=== PATIENT | male | born 1960 | race Caucasian/White ===

== ENCOUNTER 2017-02-24 16:28 | Inpatient (IN) ==
[2017-02-24] MEDS ORDERED: ALBUTEROL 2.5 MG/3 ML NEB RESP TX STA (16:53)
[2017-02-24] MEDS ORDERED: SODIUM CHLORIDE 0.9% 500 ML IV STA (16:53)
[2017-02-24] MEDS ORDERED: methylPREDNISolone SOD SUC 125 MG/2 ML VIAL IV STA (16:53)
--- NOTE | 2017-02-24 16:57 | EKG Report ---
Stationary ECG Study [facility] ER Test Date: 02/24/2017 4:53:53 PM Pat Name: RAJENDRA CAMPBELL Department: Room: Gender: M Caf[employer] Associate: : 1960 Requested by: Danial Austin Order Number: [id number] Reading MD: MICHAEL RAMIREZ Intervals [place] Rate: 98 P: 94 LA: 127 QRS: -28 QRSD: 94 T: 70 QT: 328 QTc: 383 Interpretive Statements SINUS RHYTHM BORDERLINE LEFT AXIS DEVIATION Electronically Signed On 02-24-17 20:21:20 CDT by MICHAEL RAMIREZ [email or web address]
--- NOTE | 2017-02-24 16:59 | Emergency Department Note ---
Maycol Butler Brooke, am scribing for, and in the presence of, Danial Sanchez MD 16:56 . Laura Butler James D, MD, personally performed the services described in this documentation, ascribed by Sakshi Severino in my presence, and it is both accurate and complete [id number] . Arrival - Arrival Chief Complaint: Upper Respiratory Stated Complaint: copd ED Nursing Triage Note: Cough and congestion with wheezing onset x 2 weeks - pt has a HX of COPD Mode of Arrival: Wheelchair Limitations: No Limitations Source: Patient, RN Notes Reviewed Time Seen by Provider: 02/24/17 16:49 - History of Present Illness HPI Narrative: Patient is a 56 year old male, with history of COPD, who presents to the ED with c/o wheezing that has been ongoing for a couple of weeks. Patient says he was in the ED, two weeks ago, with same complaint and states "they wanted to admit me but I didn't have anyone to take care of my mother, so I couldn't." Patient says he has been coughing a lot and has had nasal and sinus drainage. Patient denies having any sore throat. He has been using Duonebs every four hours and albuterol every six hours. He says he had a syncopal episode, four days ago, and fell onto his left shoulder. Patient says his left shoulder is very painful to move and touch. Patient denies having any back pain. Patient also has PMHx of pneumonia and hepatitis C and B. Patient does not have a Primary Care Provider. He quit smoking about five years ago and says he used to smoke "a couple of packs" of cigarettes a day. Onset (ago): week(s) (2) Allergies/Adverse Reactions: Allergies Allergy/AdvReac Type Severity Reaction Status Date / Time No Known Allergies Allergy Verified 05/04/16 13:33 Home Medications: Home Medications Medication Instructions Recorded Confirmed Type Budesonide/Formoterol 160-4.5 2 puff INH BID 05/04/16 02/24/17 History [Symbicort 160-4.5] Albuterol/Ipratropium Neb [Duoneb] 3 ml RESP TX RT Q4H 11/16/16 02/24/17 History Albuterol Neb [Proventil Neb] 2.5 mg RESP TX Q6HR #120 neb 01/02/17 02/24/17 Rx Review of System - Review of System 12 point system: reviewed and no additional remarkable complaints except as stated - Review of System Constitutional: Absent: fever Head/Ears/Nose/Throat: Present: other (nasal and sinus drainage). Absent: sore throat Respiratory: Present: cough, wheezing. Absent: respiratory distress Musculoskeletal: Present: other (left shoulder pain). Absent: back pain Skin: Absent: rash Medical,Surgical,& Family Hx - Medical History Respiratory: History of: COPD, Pneumonia Gastrointestinal: History of: Hepatitis (Hep B & C) Other: History of: Miscellaneous Medical Problems (Hep C) - Surgical History Reproductive Surgeries: Surgical HX of;: Genitourinary Surgery (Procedure to correct Testicular Torsion) - Family History Family History: Reports;: Family Diabetes, Family Hypertension - Social History Smoking Status: Former smoker Frequency of Alcohol Use: None Type of Drug Use: None Exam Vital Signs: Vital Signs Temperature 98.2 F 02/24/17 16:38 Pulse Rate 118 H 02/24/17 17:00 Respiratory Rate 18 02/24/17 17:00 Blood Pressure 140/113 02/24/17 16:38 O2 Sat by Pulse Oximetry 95 02/24/17 17:00 GENERAL: This is a well-nourished well-developed white male in no apparent distress. VITAL SIGNS: Reviewed HEENT: Head is atraumatic and normocephalic. Pupils are equal round react to light. Extraocular movements are intact. Oropharynx is benign with moist mucous membranes. NECK: Neck is soft and supple without tenderness. There are no masses. There is no lymphadenopathy. LUNGS: Expiratory wheezes in all lung nathan with prolongation of expiratory phase. Chest rises symmetrically. There is no chest wall tenderness. CV: Heart is regular rate and rhythm without murmurs rubs or gallops. ABDOMEN: Abdomen is soft, nontender to palpation. There are no abdominal abnormal masses palpated. There is no organomegaly. Bowel sounds are present and active. Back: Patient has tenderness to palpation overlying the left scapula. SKIN: Skin is warm and dry. No rash. EXTREMITIES: Patient has full range of motion without tenderness. There is no pedal edema. NEUROLOGIC: Awake alert and oriented 4. Cranial nerves II through XII are grossly intact. Motor is 5 over 5 in all extremities bilaterally. Course - Reevaluation(s) Reevaluation #1: Patient continues to have wheezing after hour-long nebulization. Time: 18:00 - Consultations Consultation #1: Discussed with hospitalist. Patient will be admitted to their service. Time: 18:00 Results - Labs CBC & BMP: 02/24/17 17:05 02/24/17 17:05 Lab Results: I have reviewed the patients labs Labs: Laboratory Tests 02/24/17 17:05 Troponin I < 0.015 - EKG EKG results: interpreted by ERMD - Impressions EKG: Normal sinus rhythm with a rate of 98, left axis deviation, low voltage QRS , nonspecific ST-T wave. - Diagnostic Findings Procedure: Chest x-ray: image reviewed by me (No infiltrates, no pleural effusions.), CT: image reviewed by me (CT head: No acute intracranial lesions or hemorrhage.), X-ray: image reviewed by me (Scapula x-ray: No evidence of fracture of the left scapula. Left shoulder x-ray: No evidence of fracture.) Disposition Clinical Impression: COPD with acute exacerbation, Post-tussive syncope, Contusion of left shoulder Case discussed with: patient Disposition: Still a Patient Condition: Stable
[2017-02-24] MEDS ORDERED: methylPREDNISolone SOD SUC 125 MG/2 ML VIAL ONE (17:17)
--- NOTE | 2017-02-24 17:20 | XRay Report ---
XR chest 1V portable Indication: Shortness of breath. Comparison: Chest x-ray 01/02/2017. Technique: Portable AP chest was performed. Findings: Heart size is normal. Pulmonary vasculature appears within normal limits. No significant abnormality of the mediastinal contours demonstrated. Lungs are clear. Bones and soft tissues demonstrate no significant abnormalities. Impression: 1. No evidence of acute pathology. 02/24/2017 5:17 PM PROCEDURE INTERPRETED AT [facility] DEPARTMENT OF RADIOLOGY Final Report Signed by: Dr. Milind Kang
[2017-02-24 17:40] LABS: Basophils # 0.1 10*3/uL (0.0-0.2); Basophils % 0.9 % (0.0-0.8); Eosinophils # 3.6 10*3/uL (0.0-0.87); Eosinophils % 27.1 % (0.00-10.9); Hemoglobin 16.8 GM/DL (14.0-18.0); Immature Granulocytes % 0.3 %; Immature Granulocytes Absolute 0.04 #; Lymphocytes # 1.6 10*3/uL (1.4-4.0); Lymphocytes % 12.3 % (21.2-54.2); Mean Corpuscular HGB Conc 36.9 GM/DL (32-36); Mean Corpuscular Hemoglobin 35 PG (27-34); Mean Corpuscular Volume 95.6 FL (87-102); Mean Platelet Volume 10.1 FL (9.6-12.0); Monocytes # 0.9 10*3/uL (0.11-0.8); Monocytes % 7.2 % (1.7-12.7); Neutrophils # 6.9 10*3/uL (1.4-7.4); Neutrophils % 52.2 % (38.7-73.9); Platelet Count 204 T/CUMM (130-400); Red Blood Count 4.76 MC/CUMM (3.8-5.5); Red Cell Distribution Width 12.7 % (9.3-17.3); White Blood Count 13.1 T/CUMM (4-12)
[2017-02-24 17:41] LABS: Hematocrit 45.5 VOL% (42.0-52.0)
--- NOTE | 2017-02-24 17:41 | CT Report ---
CT head/brain wo con Indication: Syncope Comparison: None. Technique: CT of the brain was performed without administration of intravenous contrast. The CT examination was performed using one or more of the following dose reduction techniques: Automatic exposure control, adjustment of the mA and kV according to patient size, use of acute or iterative reconstruction techniques. Findings: There is no evidence of acute intracranial hemorrhage, mass, or infarction. Ventricles appear within normal limits. The basal cisterns are patent. No significant abnormality is demonstrated to involve the posterior fossa or cerebellum. Orbits and globes demonstrate no evidence of significant pathology. Paranasal sinuses are completely opacified with fluid. Frontal sinuses are hypoaerated. No significant abnormality is demonstrated to involve the mastoid air cells. The calvarium and overlying soft tissues demonstrate no evidence of acute pathology. Impression: 1. No CT evidence of acute intracranial pathology. 2. Pansinusitis. 02/24/2017 5:37 PM PROCEDURE INTERPRETED AT [facility] DEPARTMENT OF RADIOLOGY Final Report Signed by: Dr. Milind Kang
[2017-02-24 17:43] LABS: Albumin 4.1 G/DL (3.4-5.0); Bilirubin,Total 0.8 MG/DL (0.2-1.0); Calcium 9.5 MG/DL (8.5-10.1); Osmolality,Calculated 273.7 MOS/KG (273-304); Potassium 4.4 MMOL/L (3.5-5.1)
[2017-02-24] MEDS ORDERED: ACETAMINOPHEN 325 MG TABLET PO PRN (18:08)
[2017-02-24] MEDS ORDERED: ONDANSETRON 4 MG/2 ML VIAL IV PRN (18:08)
[2017-02-24 18:12] LABS: Eosinophils 22 % (0-10); Lymphocytes 14 % (20-55); Platelet Estimate Adequate; Segmented Neutrophils 60 % (50-85); Total Cells Counted 100
[2017-02-24 18:13] LABS: Hypochromasia Slight
--- NOTE | 2017-02-24 18:20 | Hospitalist History & Physical ---
Assessment and Plan (1) COPD with acute exacerbation Status: Acute Assessment and plan: We will start inhaled bronchodilators, empiric antibiotic coverage, and intravenous corticosteroids. We will recheck chest x-ray in a.m. Current Visit: Yes (2) Contusion of left shoulder Status: Acute Assessment and plan: X-ray of left shoulder and left arm essentially negative for any acute fracture or abnormality. We will manage pain and consult physical therapy for evaluation. We will continue supportive care. Current Visit: Yes (3) Post-tussive syncope Status: Acute Assessment and plan: The patient reports that he had a syncopal episode and subsequently caused injury to his left arm. CT of the head was essentially negative for any acute intracranial processes. This is likely attributed to his chronic obstructive pulmonary disease. Current Visit: Yes History of Present Illness Chief complaint: Shortness of breath, cough, congestion, and wheezing History of present illness: This is a chronically ill 56-year-old male that presented to the ED at [facility] this afternoon for the evaluation of cough, congestion, wheezing, shortness of breath. The patient has a medical history significant for hepatitis C, hepatitis B, chronic obstructive pulmonary disease, remote nicotine abuse, pneumonia. The patient reported a surgical history significant for testicular torsion repair. The patient reports the onset of symptoms 2 weeks prior to presentation. He reports that he was seen in the ED during that time for the same complaint however refused admission due to family obligations. The patient reports an excessive cough with both nasal and sinus drainage. He reports that he has been taking his inhaled bronchodilators every 6 hours with minimal relief. In addition, the patient reported that he had a syncope episode 4 days ago injuring his left shoulder. He reports that his left shoulder is painful to touch and he has been unable to lie on that side. His symptoms became severe this afternoon prompting him to present to the ED for further evaluation. The patient was assessed at the time of ED presentation. At the time of presentation, the patient was experiencing respiratory distress. Immediate bronchodilator treatments were initiated with minimal relief. Labs were obtained which were significant for white blood cell count at 13.1, AST 53, ALT 76, alkaline phosphatase 124, troponin less than 0.05. Chest x-ray was negative for any acute cardiopulmonary processes. CT head was essentially negative for any evidence of acute intracranial pathology however pansinusitis was noted. X-ray of the left shoulder and left scapula was essentially; no evidence of fracture or acute deformity noted. After brief discussion with both and Dr. Richards, the patient will be admitted to the hospitalist service for continuation of care. Home medications have been reviewed and reconciled. CODE STATUS discussed; patient is FULL CODE. Home Medications Medication Instructions Recorded Confirmed Type Budesonide/Formoterol 160-4.5 2 puff INH BID 05/04/16 02/24/17 History [Symbicort 160-4.5] Albuterol/Ipratropium Neb [Duoneb] 3 ml RESP TX RT Q4H 11/16/16 02/24/17 History Albuterol Neb [Proventil Neb] 2.5 mg RESP TX Q6HR #120 neb 01/02/17 02/24/17 Rx Allergies Allergy/AdvReac Type Severity Reaction Status Date / Time No Known Allergies Allergy Verified 05/04/16 13:33 Medical,Surgical,& Family Hx - Medical History Respiratory: History of: COPD, Pneumonia Gastrointestinal: History of: Hepatitis (Hep B & C) Other: History of: Miscellaneous Medical Problems (Hep C) - Surgical History Reproductive Surgeries: Surgical HX of;: Genitourinary Surgery (Procedure to correct Testicular Torsion) - Family History Family History: Reports;: Family Diabetes, Family Hypertension - Social History Smoking Status: Former smoker Frequency of Alcohol Use: None Type of Drug Use: None Exam - Constitutional Vitals: Period Temp Pulse Resp BP Sys/Bartholomew Pulse Ox Last 24 Hr 98.2 F-98.2 F 111-118 18-20 140-140/113-113 94-95 General appearance: normal weight, mild distress - Head Head exam: Present: normal inspection, normocephalic, atraumatic - Eye Eye exam: Present: EOMI. Absent: conjunctival injection Pupils: Present: RONY, normal accommodation - ENT ENT exam: Present: normal exam, normal external ear exam, normal oropharynx - Neck Neck exam: Present: normal inspection. Absent: lymphadenopathy, meningismus, tenderness, thyromegaly - Respiratory Respiratory exam: Present: accessory muscle use, prolonged expiratory phase, wheezes - Cardiovascular Cardiovascular exam: Present: regular rate and rhythm. Absent: carotid bruit, diastolic murmur, gallop, JVD, rubs, systolic murmur - GI/Abdominal GI/Abdominal exam: Present: normal bowel sounds, soft - Extremities Exam Extremities exam: Present: normal inspection, full ROM (Limited range of motion to the left shoulder secondary to injury prior to presentation) - Expanded Left Upper Extremity Shoulder exam: Present: normal inspection, pain, tenderness over AC joint, tenderness Upper Arm exam: Present: normal inspection, tenderness, pain Elbow exam: Present: normal inspection Forearm wrist exam: Present: normal inspection Hand wrist exam: Present: normal inspection Neuro motor exam: Present: fingers 2-5 abduction intact Neurosensory exam: Present: 2-point discrimination Vascular: Present: normal capillary refill - Neurological Exam Neurological exam: Present: alert, oriented X3, CN II-XII intact - Psychiatric Psychiatric exam: Present: normal affect, normal mood - Skin Skin exam: Present: normal color, warm, dry Results - Labs CBC & BMP: 02/24/17 17:05 02/24/17 17:05 Lab Results: I have reviewed the past 24 hour labs
--- NOTE | 2017-02-24 18:53 | XRay Report ---
XR scapula LT Indication: Syncope. Left scapular pain status post fall. Comparison: None. Technique: AP and lateral images of the left scapula were obtained. Findings: No acute fracture of the left scapula is present. The glenohumeral joint is grossly intact. Visualized portions of the left rib cage suggest no acute findings, remote rib fractures involving the lateral aspect of the left fourth rib and posterior lateral fifth rib are suggested. Additional rib deformities involving the lateral left seventh and eighth ribs are present. Impression: 1. No acute scapular injury. 2. Rib fractures involving the left rib cage appear to represent remote injuries. 02/24/2017 6:49 PM PROCEDURE INTERPRETED AT [facility] [place] DEPARTMENT OF RADIOLOGY Final Report Signed by: Dr. Milind Kang
--- NOTE | 2017-02-24 18:54 | XRay Report ---
XR shoulder 2V LT Indication: Left shoulder pain status post fall. Syncope. Comparison: None. Technique: Internal/external rotation AP views of the left shoulder were obtained. Findings: There is no evidence of fracture, dislocation, or significant soft tissue abnormality involving the left shoulder. Imaged portion of the left chest is unremarkable. Subtle elevation of the distal clavicle at the AC joint is present. Additionally, the AC joint measures up to approximately 4.5 mm, upper limits of normal. Impression: 1. AC joint separation is not excluded. 02/24/2017 6:50 PM PROCEDURE INTERPRETED AT [facility] DEPARTMENT OF RADIOLOGY Final Report Signed by: Dr. Milind Kang
[2017-02-24] MEDS: ALBUTEROL/IPRATROPIUM 3 ML NEB RESP TX SCH (19:00)
[2017-02-24] MEDS: ALBUTEROL 2.5 MG/3 ML NEB RESP TX PRN (21:01)
[2017-02-24] MEDS: SODIUM CHLORIDE 0.9% 1,000 ML IV SCH (21:41)
[2017-02-24] MEDS: LEVOFLOXACIN INJ 750 MG in PREMIX 1 EACH IV SCH (21:41)
[2017-02-24] MEDS: ENOXAPARIN 40 MG/0.4 ML SYRINGE SUBCUT SCH (21:42)
[2017-02-24] MEDS: BUDESONIDE/FORMOTEROL 160-4.5 INHALER 6 GM INH SCH (21:43)
[2017-02-24] MEDS: methylPREDNISolone SOD SUC 40 MG/1 ML VIAL IV SCH (21:43)
[2017-02-24] MEDS: DOCUSATE SODIUM 100 MG CAPSULE PO SCH (21:44)
[2017-02-24] MEDS: ZALEPLON 5 MG CAPSULE PO PRN (21:45)
[2017-02-25] MEDS: ALBUTEROL/IPRATROPIUM 3 ML NEB RESP TX SCH ×4 (01:40→19:52)
[2017-02-25] MEDS: methylPREDNISolone SOD SUC 40 MG/1 ML VIAL IV SCH ×4 (04:26→21:35)
[2017-02-25 05:20] LABS: Basophils % 0.2 % (0.0-0.8); Eosinophils % 0.4 % (0.00-10.9); Hematocrit 38.6 VOL% (42.0-52.0); Hemoglobin 13.8 GM/DL (14.0-18.0); Immature Granulocytes % 0.7 %; Immature Granulocytes Absolute 0.04 #; Lymphocytes # 0.5 10*3/uL (1.4-4.0); Lymphocytes % 9.5 % (21.2-54.2); Mean Corpuscular HGB Conc 35.8 GM/DL (32-36); Mean Corpuscular Hemoglobin 35 PG (27-34); Mean Corpuscular Volume 96.7 FL (87-102); Mean Platelet Volume 10.3 FL (9.6-12.0); Monocytes # 0.1 10*3/uL (0.11-0.8); Monocytes % 1.5 % (1.7-12.7); Neutrophils # 4.8 10*3/uL (1.4-7.4); Neutrophils % 87.7 % (38.7-73.9); Platelet Count 187 T/CUMM (130-400); Red Blood Count 3.99 MC/CUMM (3.8-5.5); Red Cell Distribution Width 12.5 % (9.3-17.3); White Blood Count 5.5 T/CUMM (4-12)
[2017-02-25 05:57] LABS: Albumin 3.4 G/DL (3.4-5.0); Bilirubin,Total 1.1 MG/DL (0.2-1.0); Calcium 8.9 MG/DL (8.5-10.1); Potassium 4.4 MMOL/L (3.5-5.1); Total Protein 6.9 G/DL (6.4-8.3)
--- NOTE | 2017-02-25 08:24 | XRay Report ---
XR chest 2V Indication: Shortness of breath Comparison: 24 February 2017 Findings: The heart and mediastinum are normal in size and configuration. The pulmonary vascularity is normal in caliber. Lung volumes are increased with prominent bronchial markings. No lung infiltrates, effusions, pneumothorax or other abnormality is demonstrated. Impression: Chronic lung changes. No acute process or significant change. PROCEDURE INTERPRETED AT [facility] DEPARTMENT OF RADIOLOGY Final Report Signed by: Dr. Jules Melgar
[2017-02-25] MEDS: DOCUSATE SODIUM 100 MG CAPSULE PO SCH ×2 (08:36→21:35)
[2017-02-25] MEDS: PANTOPRAZOLE 40 MG TABLET PO SCH (08:36)
[2017-02-25] MEDS: SODIUM CHLORIDE 0.9% 1,000 ML IV SCH ×3 (08:37→23:07)
[2017-02-25] MEDS: BUDESONIDE/FORMOTEROL 160-4.5 INHALER 6 GM INH SCH ×2 (08:37→21:34)
--- NOTE | 2017-02-25 13:13 | Hospitalist Progress Note ---
Assessment and Plan - Time spent with patient Time spent with patient: Greater than 30 minutes (Pt is new to me and chart reviewed by me today.) (1) COPD with acute exacerbation Status: Acute Assessment and plan: Continue current IV steroid dosage. Continue NEB, oxygen and IV levaquin. Reeval in am. BMP in am. ABG in am. Current Visit: Yes (2) Contusion of left shoulder Status: Acute Current Visit: Yes (3) Post-tussive syncope Status: Acute Current Visit: Yes Hospitalist: Subjective Interval history: No overnight acute event. Still feeling SOB. Adm yesterday due to COPD exac. On iv steroid and levaquin. On resp care and NEB treatment. Exam - Constitutional Vitals: Period Temp Pulse Resp BP Sys/Bartholomew Pulse Ox Last 24 Hr 97.6 F-98.3 F 90-126 17-24 103-149/65-113 90-97 Exam: General: Lying in bed. AAOx3. On oxygen HEENT: NC AT EOMI, normal lips and gum. Lungs: B/l decreased breath sound. Heart: +S1/S2, RRR, no gallops. Abd: +BS, NT ND. Neuro: AAOx3 - Expanded Left Upper Extremity Neurosensory exam: Present: 2-point discrimination Results - Labs CBC & BMP: 02/25/17 05:02 02/25/17 05:02 Specialty Discharge - Follow Up or Referrals
[2017-02-25] MEDS: HYDROcodone/HOMATROPINE 5 ML UDCUP PO PRN ×2 (15:17→21:35)
[2017-02-25] MEDS: LEVOFLOXACIN INJ 750 MG in PREMIX 1 EACH IV SCH (17:32)
[2017-02-25] MEDS: ENOXAPARIN 40 MG/0.4 ML SYRINGE SUBCUT SCH (21:44)
[2017-02-26] MEDS: ALBUTEROL/IPRATROPIUM 3 ML NEB RESP TX SCH ×4 (00:54→19:53)
[2017-02-26 02:53] LABS: Calcium 8.5 MG/DL (8.5-10.1); Magnesium 2.4 MG/DL (1.8-2.4); Osmolality,Calculated 276.8 MOS/KG (273-304); Potassium 3.9 MMOL/L (3.5-5.1)
[2017-02-26 03:51] LABS: ABG Base Excess -0.9 MMOL/L (-2.5-2.5); ABG HCO3 23.2 MMOL/L (20-26); ABG Oxygen Saturation 94.2 % (95-100); ABG PCO2 36.8 MM HG (35-48); ABG PH 7.417 (7.35-7.45); ABG TCO2 24.3 MMOL/L (23-27); Allen Test Positive; Pt O2 Delivery Device Room Air
[2017-02-26] MEDS: SODIUM CHLORIDE 0.9% 1,000 ML IV SCH ×2 (05:17→15:44)
[2017-02-26] MEDS: methylPREDNISolone SOD SUC 40 MG/1 ML VIAL IV SCH ×4 (05:27→21:00)
[2017-02-26] MEDS: HYDROcodone/HOMATROPINE 5 ML UDCUP PO PRN ×3 (07:32→20:58)
[2017-02-26] MEDS: guaiFENesin/DM ER 600-30 MG TABLET PO PRN (09:37)
[2017-02-26] MEDS: PANTOPRAZOLE 40 MG TABLET PO SCH (09:37)
[2017-02-26] MEDS: DOCUSATE SODIUM 100 MG CAPSULE PO SCH ×2 (09:37→20:57)
[2017-02-26] MEDS: BUDESONIDE/FORMOTEROL 160-4.5 INHALER 6 GM INH SCH ×2 (09:38→20:58)
--- NOTE | 2017-02-26 09:47 | XRay Report ---
XR chest 2V Date: 02/26/2017 4:00 AM History: COPD Comparison: 02/25/2017 Technique: PA and lateral chest Findings: The heart is small and compressed by the over expanded lungs. Chronic scarring in the lungs with old healed rib fractures. Stable mediastinum. Degenerative changes are noted. Impression: COPD/bullous emphysema with chronic scarring. PROCEDURE INTERPRETED AT [facility] [place] DEPARTMENT OF RADIOLOGY Final Report Signed by: Dr. Selam Chan
--- NOTE | 2017-02-26 15:14 | Hospitalist Progress Note ---
Assessment and Plan (1) COPD with acute exacerbation Status: Acute Assessment and plan: Continue bronchodilators, ipratropium bromide. Increase Solu-Medrol to 60 mg IV every 8 hours. Schedule albuterol also should be able to be given. For the chest x-ray in the morning. Current Visit: Yes (2) Post-tussive syncope Status: Acute Assessment and plan: Continue antitussive medications as ordered Current Visit: Yes Hospitalist: Subjective Interval history: Patient has been seen interviewed and examined and chart has been reviewed. Admitted to the hospital with acute exacerbation of COPD and post-tussive syncope. He remains quite bronchospastic at this time. General however he looks to be prudent to start talking to him and he goes into a coughing spell. No fevers and not certain any prior history of old infectious exposures including pertussis. There is no post-tussive vomiting. Exam - Constitutional Vitals: Period Temp Pulse Resp BP Sys/Bartholomew Pulse Ox Last 24 Hr 97 F-98.0 F 80-108 16-24 126-141/70-84 89-100 General appearance: no acute distress - Head Head exam: Present: normocephalic, atraumatic - Eye Eye exam: Present: EOMI Pupils: Present: RONY - Respiratory Respiratory exam: Present: wheezes, other (Diffuse wheezing paroxysmal coughing with increased upper airway sounds) - Cardiovascular Cardiovascular exam: Present: regular rate and rhythm - Extremities Exam Extremities exam: Present: full ROM - Expanded Left Upper Extremity General: Present: normal inspection Neurosensory exam: Present: 2-point discrimination - Neurological Exam Neurological exam: Present: alert, oriented X3, CN II-XII intact - Psychiatric Psychiatric exam: Present: normal affect, normal mood - Skin Skin exam: Present: normal color, warm, dry Results - Labs CBC & BMP: 02/25/17 05:02 02/26/17 02:04 Lab Results: I have reviewed the past 24 hour labs (Noted mild anemia) Specialty Discharge - Follow Up or Referrals
[2017-02-26] MEDS: ALBUTEROL 2.5 MG/3 ML NEB RESP TX PRN (16:22)
[2017-02-26] MEDS: LEVOFLOXACIN INJ 750 MG in PREMIX 1 EACH IV SCH (18:18)
[2017-02-26] MEDS: ENOXAPARIN 40 MG/0.4 ML SYRINGE SUBCUT SCH (20:58)
[2017-02-26] MEDS: ZALEPLON 5 MG CAPSULE PO PRN (20:59)
[2017-02-27] MEDS: ALBUTEROL/IPRATROPIUM 3 ML NEB RESP TX SCH ×2 (00:20→07:36)
[2017-02-27] MEDS: SODIUM CHLORIDE 0.9% 1,000 ML IV SCH (01:30)
[2017-02-27] MEDS: HYDROcodone/HOMATROPINE 5 ML UDCUP PO PRN ×2 (04:34→10:37)
[2017-02-27] MEDS: guaiFENesin/DM ER 600-30 MG TABLET PO PRN (04:34)
[2017-02-27] MEDS: methylPREDNISolone SOD SUC 40 MG/1 ML VIAL IV SCH ×2 (04:35→09:32)
--- NOTE | 2017-02-27 09:19 | XRay Report ---
XR chest 2V Date: 02/27/2017 4:00 AM History: Pneumonia Comparison: 02/26/2017 Technique: PA and lateral chest Findings: The heart is small and compressed by the over expanded lungs. Chronic scarring in the lungs with old rib fractures. Stable mediastinum with degenerative changes. Impression: COPD/bullous emphysema with chronic scarring. PROCEDURE INTERPRETED AT [facility] DEPARTMENT OF RADIOLOGY Final Report Signed by: Dr. Selam Chan
[2017-02-27] MEDS: PANTOPRAZOLE 40 MG TABLET PO SCH (09:31)
[2017-02-27] MEDS: DOCUSATE SODIUM 100 MG CAPSULE PO SCH (09:31)
[2017-02-27] MEDS: BUDESONIDE/FORMOTEROL 160-4.5 INHALER 6 GM INH SCH (09:32)
--- NOTE | 2017-02-27 11:07 | CT Report ---
Referring physician: Ravi Cisneros MD EXAM: CT chest without contrast DATE: 02/27/2017 COMPARISON: 08/21/2014 REASON: Recent fall with continued pain between shoulders and left anterior chest with cough TECHNIQUE: Axial images of the chest were obtained without the use of IV contrast. Coronal and sagittal reformatted images were also provided. Total DLP is 425 mGy*cm. FINDINGS: The heart is normal in size with cardiac fat pads and coronary artery calcifications. Additional arterial calcifications noted with limited evaluation of the vasculature and nodes without contrast. No chest lymphadenopathy is identified. Minimal paraseptal emphysema with residual overexpansion of the lungs. Chronic scarring/atelectasis at the left lung base in the lingula. No pneumothorax or pleural effusion. Acute nondisplaced fractures of the left 2-5 ribs. Additional healing fractures of the left 2 and 3 ribs. Old healed eighth rib fractures noted bilaterally. IMPRESSION: Minimal paraseptal emphysema with no pneumothorax or pleural effusion. Cardiac fat pads with chronic scarring/atelectasis in the inferior lingula. Acute nondisplaced left 2-5 rib fractures with healing 2 and 3 left rib fractures and chronic bilateral eighth rib fractures. The CT exam was performed using one or more of the following dose reduction techniques: Automated exposure control and adjustment of the mA and/or kV according to patient size. PROCEDURE INTERPRETED AT [facility] [place] DEPARTMENT OF RADIOLOGY Final Report Signed by: Dr. Selam Chan
[2017-02-27 12:36] VITALS: BP 131/88
--- NOTE | 2017-02-27 12:40 | Discharge Summary ---
Hospital Course - Hospital Course Hospital Course: Mr Ham 56 year old male, with PMHx COPD, pneumonia, hepatitis C and B presented to the ED on 02/24/17 with c/o wheezing ongoing for a couple of weeks. Also, He had a syncopal episode, approximately four days ago, and fell onto his left shoulder and reported left shoulder very painful to move and touch. Quit smoking about five years ago (was:2pack per day). WHILE IN ED: Vital Signs stable: Temperature 98.2; HR 111; RR 20; BP 140/100, SAT 94% on RA, 96% on 2L NC. CXR:Impression: No evidence of acute pathology. EKG: sinus rhythm; borderline left axis deviation HEAD CT: Impression: No CT evidence of acute intracranial pathology; Pansinusitis. SHOULDER XRAY: Impression: AC joint separation is not excluded. SCAPULA XRAY Left: Impression: No acute scapular injury; Rib fractures involving the left rib cage appear to represent remote injuries. LABS: WBC 13.1; H&H 13.8 & 38.6; AST 53; ALT 76; Alkaline Phosphate 124; Troponin negative. Hour-long nebulization, solumedrol 125mg was given upon arrival. Hospitalist Services consulted for admission and further evaluation. ADMITTED 02/24/17: Started Bronchodilators; intravenous steroids; empiric antibiotics and pain management. Repeat CXR: COPD/bullous emphysema with chronic scarring. REpeat CHEST CT: IMPRESSION: Minimal paraseptal emphysema with no pneumothorax or pleural effusion. Cardiac fat pads with chronic scarring/atelectasis in the inferior lingula. Acute nondisplaced left 2-5 rib fractures with healing 2 and 3 left rib fractures and chronic bilateral eighth rib fractures. DISCHARGING 02/27/17: Patient continues to be improving and stable. Breathing is much better. Rib fractures are stable and healing appropriately. Feel the patient meets all necessary criteria to be discharged home today. He will need to follow up with primary care physician. Resume all activities as tolerated, weight bearing as tolerated. Heart Healthy diet is recommended. Medications were reviewed and reconciled prior to discharge and instructions given to patient. Diagnosis - Discharge Diagnosis (1) COPD with acute exacerbation Status: Acute (2) Post-tussive syncope Status: Acute Specialty Discharge - Follow Up or Referrals Discharge Plan - Discharge Data Disposition: Disch To Home/Self Care Condition at Discharge: Stable Discharge Diet: heart healthy Activity: resume usual activities as tolerated Weight Bearing at Discharge: weight bear as tolerated Driving: not until seen by doctor Contact your physician if you experience:: fever over 101, Shortness of breath, pain uncontrolled by pain medications - Discharge Medications New HYDROcodone/ACETAMIN 5-325 [Holden 5-325] 1 tablet PO Q4H PRN #60 tablet PRN Reason: Pain Mild (1-3) Levofloxacin Tab [Levaquin Tab] 750 mg PO Q24H #5 tablet Pantoprazole Tab [Protonix Tab] 40 mg PO DAILY #30 tablet predniSONE TAB [PredniSONE] 5 mg PO DAILY #7 tablet predniSONE TAB [PredniSONE] 10 mg PO DAILY #7 tablet predniSONE TAB [PredniSONE] 20 mg PO DAILY #7 tablet predniSONE TAB [PredniSONE] 40 mg PO DAILY #5 tablet predniSONE TAB [PredniSONE] 60 mg PO DAILY #5 tablet guaiFENesin/DM ER 600-30 [Mucinex Dm 600-30 MG] 1 tablet PO BID PRN #300 ml PRN Reason: Cough Continue Budesonide/Formoterol 160-4.5 [Symbicort 160-4.5] 2 puff INH BID Albuterol/Ipratropium Neb [Duoneb] 3 ml RESP TX RT Q4H Albuterol Neb [Proventil Neb] 2.5 mg RESP TX Q6HR #120 neb - Follow Up or Referral - Forms/Instructions Instructions: Cigarette Smoking and Your Health (GEN), Chronic Obstructive Pulmonary Disease (GEN), COPD Exacerbation, Eviction Specialist (GEN) Exam - Constitutional Vitals: Period Temp Pulse Resp BP Sys/Bartholomew Pulse Ox Last 24 Hr 96.6 F-98.2 F 75-160 15-28 115-131/66-94 92-100 General appearance: normal weight, no acute distress - Head Head exam: Present: normocephalic, atraumatic - Eye Eye exam: Present: EOMI Pupils: Present: RONY - Respiratory Respiratory exam: Present: clear to auscultation bilaterally, other (Crepitance in the ribs no deformity no splint) - Cardiovascular Cardiovascular exam: Present: regular rate and rhythm - Extremities Exam Extremities exam: Present: full ROM - Back Exam Back exam: Present: other (Tender in the left upper back to palpation) - Neurological Exam Neurological exam: Present: alert, oriented X3, CN II-XII intact - Psychiatric Psychiatric exam: Present: normal affect, normal mood - Skin Skin exam: Present: normal color, warm, dry DS: Provider Date of admission: 02/24/17 18:06 Primary care physician: . No PCP Attending physician on admission: Samantha Azar MD Consults: 02/24/17 18:07 Consult to Pulmonary Rehabilitation [CONS] Routine Reason for Pulmonary Rehabilitation: COPD 02/24/17 18:09 Consult to Case Mgmt/Social Srvs [CONS] Routine Reason for Case Mgmt/Social Srvs: Discharge Planning Discharging clinician: Ravi Cisneros MD
[2017-02-28] MEDS ORDERED: predniSONE 20 MG TABLET PO SCH (09:00)
[2017-02-28] MEDS ORDERED: LEVOFLOXACIN 750 MG TABLET PO SCH (09:00)
[2017-03-03] MEDS ORDERED: predniSONE 20 MG TABLET PO SCH (09:00)
[2017-03-08] MEDS ORDERED: predniSONE 20 MG TABLET PO SCH (09:00)
[2017-03-16] MEDS ORDERED: predniSONE 10 MG TABLET PO SCH (09:00)
[2017-03-24] MEDS ORDERED: predniSONE 5 MG TABLET PO SCH (09:00)
== END 2017-02-27 13:42 | disposition home or self-care (01) | DRG 192 ==
LOC: N.ED 16:28 → SUATTDRO 18:06 → N.EDINP 18:06 → N.2E 19:17
PROVIDERS: ADMIT Family Medicine; ATTEND Internal Medicine Infectious Disease

== ENCOUNTER 2017-06-20 13:48 | Inpatient (IN) ==
[2017-06-20] MEDS ORDERED: ALBUTEROL/IPRATROPIUM 3 ML NEB RESP TX STA ×2 (14:08→14:56)
[2017-06-20] MEDS ORDERED: methylPREDNISolone SOD SUC 125 MG/2 ML VIAL IV STA (14:12)
[2017-06-20] MEDS ORDERED: methylPREDNISolone SOD SUC 125 MG/2 ML VIAL ONE (14:19)
[2017-06-20 14:43] LABS: Basophils # 0.1 10*3/uL (0.0-0.2); Basophils % 1.5 % (0.0-0.8); Eosinophils # 1.4 10*3/uL (0.0-0.87); Hemoglobin 17.2 GM/DL (14.0-18.0); Immature Granulocytes % 0.4 %; Immature Granulocytes Absolute 0.03 #; Lymphocytes # 1.8 10*3/uL (1.4-4.0); Lymphocytes % 20.8 % (21.2-54.2); Mean Corpuscular HGB Conc 36.7 GM/DL (32-36); Mean Corpuscular Hemoglobin 35 PG (27-34); Mean Corpuscular Volume 95.1 FL (87-102); Mean Platelet Volume 10.1 FL (9.6-12.0); Monocytes # 0.7 10*3/uL (0.11-0.8); Monocytes % 8.4 % (1.7-12.7); Neutrophils # 4.5 10*3/uL (1.4-7.4); Neutrophils % 52.9 % (38.7-73.9); Platelet Count 216 T/CUMM (130-400); Red Blood Count 4.93 MC/CUMM (3.8-5.5); Red Cell Distribution Width 12.6 % (9.3-17.3); White Blood Count 8.4 T/CUMM (4-12)
[2017-06-20 14:44] LABS: Hematocrit 46.9 VOL% (42.0-52.0)
[2017-06-20 15:15] LABS: Bilirubin,Total 0.8 MG/DL (0.2-1.0); Calcium 9.2 MG/DL (8.5-10.1); Osmolality,Calculated 274.7 MOS/KG (273-304); Total Protein 8.2 G/DL (6.4-8.3)
[2017-06-20 15:30] LABS: Eosinophils 12 % (0-10); Lymphocytes 25 % (20-55); Platelet Estimate Adequate; Segmented Neutrophils 59 % (50-85); Total Cells Counted 100
[2017-06-20] MEDS ORDERED: ONDANSETRON 4 MG/2 ML VIAL IV PRN (21:47)
[2017-06-20] MEDS ORDERED: ACETAMINOPHEN 325 MG TABLET PO PRN (21:47)
[2017-06-20] MEDS ORDERED: ALBUTEROL 2.5 MG/3 ML NEB RESP TX PRN (21:47)
[2017-06-20] MEDS: BUDESONIDE/FORMOTEROL 160-4.5 INHALER 6 GM INH SCH (23:00)
[2017-06-20] MEDS: FLUTICASONE/SALMETEROL 250-50 DISKUS 14 DOSE INH SCH (23:00)
[2017-06-20] MEDS: ALBUTEROL/IPRATROPIUM 3 ML NEB RESP TX SCH (23:51)
[2017-06-21] MEDS: ALBUTEROL/IPRATROPIUM 3 ML NEB RESP TX SCH ×4 (04:12→19:06)
[2017-06-21] MEDS: CLOTRIMAZOLE 1% CREAM 15 GM TUBE TOP SCH ×3 (04:53→20:07)
[2017-06-21 06:58] LABS: Basophils % 0.1 % (0.0-0.8); Eosinophils % 0.1 % (0.00-10.9); Hematocrit 41.3 VOL% (42.0-52.0); Immature Granulocytes % 0.6 %; Immature Granulocytes Absolute 0.05 #; Lymphocytes # 0.8 10*3/uL (1.4-4.0); Lymphocytes % 9.3 % (21.2-54.2); Mean Corpuscular HGB Conc 36.3 GM/DL (32-36); Mean Corpuscular Hemoglobin 35 PG (27-34); Mean Corpuscular Volume 95.6 FL (87-102); Mean Platelet Volume 10.7 FL (9.6-12.0); Monocytes # 0.2 10*3/uL (0.11-0.8); Monocytes % 2.3 % (1.7-12.7); Neutrophils # 7.4 10*3/uL (1.4-7.4); Neutrophils % 87.6 % (38.7-73.9); Platelet Count 194 T/CUMM (130-400); Red Blood Count 4.32 MC/CUMM (3.8-5.5); Red Cell Distribution Width 12.5 % (9.3-17.3); White Blood Count 8.4 T/CUMM (4-12)
[2017-06-21 07:15] LABS: Calcium 9.1 MG/DL (8.5-10.1); Potassium 4.3 MMOL/L (3.5-5.1)
[2017-06-21] MEDS: BUDESONIDE/FORMOTEROL 160-4.5 INHALER 6 GM INH SCH ×2 (09:01→20:06)
[2017-06-21] MEDS: FLUTICASONE/SALMETEROL 250-50 DISKUS 14 DOSE INH SCH ×2 (09:01→20:07)
[2017-06-21] MEDS: methylPREDNISolone SOD SUC 40 MG/1 ML VIAL IV SCH ×2 (09:02→17:02)
[2017-06-21] MEDS: PANTOPRAZOLE 40 MG TABLET PO SCH (09:02)
[2017-06-21] MEDS ORDERED: IBUPROFEN 800 MG TABLET PO PRN (09:13)
[2017-06-22] MEDS: ALBUTEROL/IPRATROPIUM 3 ML NEB RESP TX SCH ×5 (00:07→20:36)
[2017-06-22] MEDS: methylPREDNISolone SOD SUC 40 MG/1 ML VIAL IV SCH ×3 (01:58→16:31)
[2017-06-22] MEDS: PANTOPRAZOLE 40 MG TABLET PO SCH (10:18)
[2017-06-22] MEDS: BUDESONIDE/FORMOTEROL 160-4.5 INHALER 6 GM INH SCH ×2 (10:18→20:43)
[2017-06-22] MEDS: FLUTICASONE/SALMETEROL 250-50 DISKUS 14 DOSE INH SCH ×2 (10:18→20:43)
[2017-06-22] MEDS: CLOTRIMAZOLE 1% CREAM 15 GM TUBE TOP SCH ×2 (10:18→20:43)
[2017-06-22] MEDS: guaiFENesin/CODEINE 5 ML LIQUID PO PRN ×2 (11:18→20:44)
[2017-06-23] MEDS: methylPREDNISolone SOD SUC 40 MG/1 ML VIAL IV SCH ×3 (00:28→17:31)
[2017-06-23] MEDS: guaiFENesin/CODEINE 5 ML LIQUID PO PRN ×4 (00:30→22:02)
[2017-06-23] MEDS: ALBUTEROL/IPRATROPIUM 3 ML NEB RESP TX SCH ×6 (00:42→20:00)
[2017-06-23] MEDS: PANTOPRAZOLE 40 MG TABLET PO SCH (09:37)
[2017-06-23] MEDS: FLUTICASONE/SALMETEROL 250-50 DISKUS 14 DOSE INH SCH (09:37)
[2017-06-23] MEDS: BUDESONIDE/FORMOTEROL 160-4.5 INHALER 6 GM INH SCH ×2 (09:38→22:03)
[2017-06-23] MEDS: CLOTRIMAZOLE 1% CREAM 15 GM TUBE TOP SCH ×2 (09:38→22:03)
[2017-06-23] MEDS ORDERED: ALBUTEROL/IPRATROPIUM 3 ML NEB RESP TX PRN (11:30)
[2017-06-23] MEDS ORDERED: AMINOPHYLLINE 250 MG in SODIUM CHLORIDE 0.9% 100 ML IV ONE (12:00)
[2017-06-23] MEDS ORDERED: ALBUTEROL/IPRATROPIUM 3 ML NEB RESP TX SCH (13:00)
[2017-06-23] MEDS: MONTELUKAST 10 MG TABLET PO SCH (13:25)
[2017-06-23] MEDS: CLORAZEPATE 7.5 MG TABLET PO SCH ×3 (13:25→22:02)
[2017-06-23] MEDS ORDERED: ALBUTEROL 2.5 MG/3 ML NEB RESP TX SCH ×2 (15:00→21:00)
[2017-06-23] MEDS: AMINOPHYLLINE 500 MG in SODIUM CHLORIDE 0.9% 480 ML IV SCH (17:33)
[2017-06-23] MEDS: ALBUTEROL 0.4 MG/ML 30 ML/BOTTLE PO SCH ×2 (19:13→22:15)
[2017-06-23] MEDS: LEVOFLOXACIN INJ 500 MG in PREMIX 1 EACH IV SCH (22:01)
[2017-06-24] MEDS: methylPREDNISolone SOD SUC 40 MG/1 ML VIAL IV SCH ×3 (00:29→17:19)
[2017-06-24] MEDS: ALBUTEROL/IPRATROPIUM 3 ML NEB RESP TX SCH ×5 (00:43→23:14)
[2017-06-24] MEDS: AMINOPHYLLINE 500 MG in SODIUM CHLORIDE 0.9% 480 ML IV SCH (02:50)
[2017-06-24 07:02] LABS: Basophils % 0.1 % (0.0-0.8); Hematocrit 37.4 VOL% (42.0-52.0); Hemoglobin 13.4 GM/DL (14.0-18.0); Immature Granulocytes % 1.7 %; Immature Granulocytes Absolute 0.17 #; Lymphocytes # 0.7 10*3/uL (1.4-4.0); Lymphocytes % 6.6 % (21.2-54.2); Mean Corpuscular HGB Conc 35.8 GM/DL (32-36); Mean Corpuscular Hemoglobin 35 PG (27-34); Mean Corpuscular Volume 96.9 FL (87-102); Mean Platelet Volume 10.8 FL (9.6-12.0); Monocytes # 0.5 10*3/uL (0.11-0.8); Monocytes % 4.8 % (1.7-12.7); Neutrophils # 8.8 10*3/uL (1.4-7.4); Neutrophils % 86.8 % (38.7-73.9); Platelet Count 173 T/CUMM (130-400); Red Blood Count 3.86 MC/CUMM (3.8-5.5); Red Cell Distribution Width 12.5 % (9.3-17.3); White Blood Count 10.2 T/CUMM (4-12)
[2017-06-24 07:49] LABS: Albumin 3.3 G/DL (3.4-5.0); Bilirubin,Total 1.1 MG/DL (0.2-1.0); Calcium 8.6 MG/DL (8.5-10.1); Free T4 (Free Thyroxine) 0.98 NG/DL (0.76-1.46); Potassium 3.9 MMOL/L (3.5-5.1); Thyroid Stimulating Hormone 0.318 uIU/ml (0.358-3.74); Total Protein 6.4 G/DL (6.4-8.3)
[2017-06-24 08:28] LABS: Hepatitis A Ab IgM Quant 0.15 Index; Hepatitis A Ab IgM Result Negative (Negative); Hepatitis B Core IgM Quant 0.16 Index; Hepatitis B Core IgM Result Negative (Negative); Hepatitis B Surface Ag Quant < 0.10 Index; Hepatitis B Surface Ag Result Negative (Negative); Hepatitis C Virus Ab Quant > 11.00 Index; Hepatitis C Virus Ab Result Positive (Negative)
[2017-06-24] MEDS: MONTELUKAST 10 MG TABLET PO SCH ×2 (09:51→21:14)
[2017-06-24] MEDS: CLORAZEPATE 7.5 MG TABLET PO SCH ×3 (09:51→21:13)
[2017-06-24] MEDS: ALBUTEROL 0.4 MG/ML 30 ML/BOTTLE PO SCH ×3 (09:51→21:19)
[2017-06-24] MEDS: CLOTRIMAZOLE 1% CREAM 15 GM TUBE TOP SCH ×2 (09:51→21:20)
[2017-06-24] MEDS: PANTOPRAZOLE 40 MG TABLET PO SCH (09:51)
[2017-06-24] MEDS: BUDESONIDE/FORMOTEROL 160-4.5 INHALER 6 GM INH SCH ×2 (09:52→21:20)
[2017-06-24] MEDS: BENZONATATE 100 MG CAPSULE PO SCH ×3 (11:41→21:13)
[2017-06-24] MEDS: guaiFENesin/CODEINE 5 ML LIQUID PO PRN ×2 (11:44→21:14)
[2017-06-24] MEDS: SODIUM CHLORIDE 0.45% IV SCH ×2 (17:19→23:50)
[2017-06-24] MEDS: AMINOPHYLLINE IV SCH ×2 (17:19→23:50)
[2017-06-24] MEDS: LEVOFLOXACIN INJ 500 MG in PREMIX 1 EACH IV SCH (21:15)
[2017-06-25] MEDS: methylPREDNISolone SOD SUC 40 MG/1 ML VIAL IV SCH ×3 (00:51→17:47)
[2017-06-25] MEDS: guaiFENesin/CODEINE 5 ML LIQUID PO PRN ×3 (04:54→21:30)
[2017-06-25] MEDS: ALBUTEROL/IPRATROPIUM 3 ML NEB RESP TX SCH ×3 (07:14→19:09)
[2017-06-25] MEDS: PANTOPRAZOLE 40 MG TABLET PO SCH (08:45)
[2017-06-25] MEDS: BENZONATATE 100 MG CAPSULE PO SCH ×3 (08:45→21:30)
[2017-06-25] MEDS: CLORAZEPATE 7.5 MG TABLET PO SCH ×3 (08:46→21:30)
[2017-06-25] MEDS: MONTELUKAST 10 MG TABLET PO SCH ×2 (08:46→21:31)
[2017-06-25] MEDS: SODIUM CHLORIDE 0.45% IV SCH ×2 (08:49→14:25)
[2017-06-25] MEDS: AMINOPHYLLINE IV SCH ×2 (08:49→14:25)
[2017-06-25] MEDS: ALBUTEROL 0.4 MG/ML 30 ML/BOTTLE PO SCH ×3 (10:08→21:51)
[2017-06-25] MEDS: CLOTRIMAZOLE 1% CREAM 15 GM TUBE TOP SCH ×2 (10:08→21:31)
[2017-06-25] MEDS: BUDESONIDE/FORMOTEROL 160-4.5 INHALER 6 GM INH SCH ×2 (10:08→21:31)
[2017-06-25] MEDS: POLYETHYLENE GLYCOL POWDER 17 GM PACK PO SCH (16:08)
[2017-06-25] MEDS: LEVOFLOXACIN INJ 500 MG in PREMIX 1 EACH IV SCH (21:29)
[2017-06-26] MEDS: ALBUTEROL/IPRATROPIUM 3 ML NEB RESP TX SCH ×4 (00:03→19:38)
[2017-06-26] MEDS: methylPREDNISolone SOD SUC 40 MG/1 ML VIAL IV SCH ×3 (00:58→16:59)
[2017-06-26] MEDS: guaiFENesin/CODEINE 5 ML LIQUID PO PRN ×2 (06:20→20:51)
[2017-06-26] MEDS: SODIUM CHLORIDE 0.45% IV SCH ×2 (06:55→23:09)
[2017-06-26] MEDS: AMINOPHYLLINE IV SCH ×2 (06:55→23:09)
[2017-06-26] MEDS: CLORAZEPATE 7.5 MG TABLET PO SCH ×3 (09:12→20:51)
[2017-06-26] MEDS: BUDESONIDE/FORMOTEROL 160-4.5 INHALER 6 GM INH SCH ×2 (09:12→20:53)
[2017-06-26] MEDS: MONTELUKAST 10 MG TABLET PO SCH ×2 (09:12→20:50)
[2017-06-26] MEDS: BENZONATATE 100 MG CAPSULE PO SCH ×3 (09:12→20:51)
[2017-06-26] MEDS: PANTOPRAZOLE 40 MG TABLET PO SCH (09:12)
[2017-06-26] MEDS: CLOTRIMAZOLE 1% CREAM 15 GM TUBE TOP SCH ×2 (09:13→20:53)
[2017-06-26] MEDS: POLYETHYLENE GLYCOL POWDER 17 GM PACK PO SCH (09:13)
[2017-06-26] MEDS: ALBUTEROL 0.4 MG/ML 30 ML/BOTTLE PO SCH ×3 (12:15→20:53)
[2017-06-26] MEDS: MORPHINE 2 MG/1 ML SYRINGE IV PRN ×2 (17:50→21:52)
[2017-06-26] MEDS: LEVOFLOXACIN INJ 500 MG in PREMIX 1 EACH IV SCH (20:51)
[2017-06-27] MEDS: ALBUTEROL/IPRATROPIUM 3 ML NEB RESP TX SCH ×4 (01:07→19:39)
[2017-06-27] MEDS: methylPREDNISolone SOD SUC 40 MG/1 ML VIAL IV SCH ×3 (02:06→18:10)
[2017-06-27] MEDS: AMINOPHYLLINE IV SCH (02:07)
[2017-06-27] MEDS: MORPHINE 2 MG/1 ML SYRINGE IV PRN ×2 (02:07→21:00)
[2017-06-27] MEDS: SODIUM CHLORIDE 0.45% IV SCH (02:07)
[2017-06-27 05:42] LABS: Basophils % 0.3 % (0.0-0.8); Hemoglobin 14.3 GM/DL (14.0-18.0); Immature Granulocytes % 3.4 %; Immature Granulocytes Absolute 0.46 #; Lymphocytes # 0.7 10*3/uL (1.4-4.0); Lymphocytes % 5.1 % (21.2-54.2); Mean Corpuscular HGB Conc 35.8 GM/DL (32-36); Mean Corpuscular Hemoglobin 34 PG (27-34); Mean Corpuscular Volume 95.7 FL (87-102); Mean Platelet Volume 10.5 FL (9.6-12.0); Monocytes # 0.7 10*3/uL (0.11-0.8); Monocytes % 5.2 % (1.7-12.7); Neutrophils # 11.7 10*3/uL (1.4-7.4); Platelet Count 179 T/CUMM (130-400); Red Blood Count 4.18 MC/CUMM (3.8-5.5); Red Cell Distribution Width 12.4 % (9.3-17.3); White Blood Count 13.6 T/CUMM (4-12)
[2017-06-27 06:13] LABS: Albumin 3.1 G/DL (3.4-5.0); Bilirubin,Direct 0.11 MG/DL (0.0-0.20); Bilirubin,Indirect 0.6 MG/DL (0.0-1.0); Bilirubin,Total 0.7 MG/DL (0.2-1.0); Calcium 8.1 MG/DL (8.5-10.1); Magnesium 2.6 MG/DL (1.8-2.4); Osmolality,Calculated 276.2 MOS/KG (273-304); Potassium 4.5 MMOL/L (3.5-5.1); Total Protein 6.2 G/DL (6.4-8.3)
[2017-06-27] MEDS: MONTELUKAST 10 MG TABLET PO SCH ×2 (09:29→21:00)
[2017-06-27] MEDS: PANTOPRAZOLE 40 MG TABLET PO SCH (09:30)
[2017-06-27] MEDS: POLYETHYLENE GLYCOL POWDER 17 GM PACK PO SCH (09:30)
[2017-06-27] MEDS: CLORAZEPATE 7.5 MG TABLET PO SCH ×3 (09:30→20:59)
[2017-06-27] MEDS: BENZONATATE 100 MG CAPSULE PO SCH ×3 (09:30→20:59)
[2017-06-27] MEDS: CLOTRIMAZOLE 1% CREAM 15 GM TUBE TOP SCH ×2 (09:31→21:00)
[2017-06-27] MEDS: BUDESONIDE/FORMOTEROL 160-4.5 INHALER 6 GM INH SCH ×2 (09:31→21:00)
[2017-06-27] MEDS: ALBUTEROL 0.4 MG/ML 30 ML/BOTTLE PO SCH ×3 (09:33→21:01)
[2017-06-27] MEDS: THEOPHYLLINE ER 300 MG TABLET PO SCH ×2 (11:02→18:10)
[2017-06-27] MEDS: NYSTATIN 500,000 UNIT/5 ML UDCUP SWISH/SWAL SCH ×3 (14:05→20:59)
[2017-06-27] MEDS: guaiFENesin/CODEINE 5 ML LIQUID PO PRN ×2 (18:44→23:04)
[2017-06-27] MEDS: LEVOFLOXACIN INJ 500 MG in PREMIX 1 EACH IV SCH (20:56)
[2017-06-28] MEDS: methylPREDNISolone SOD SUC 40 MG/1 ML VIAL IV SCH ×2 (00:16→09:00)
[2017-06-28] MEDS: ALBUTEROL/IPRATROPIUM 3 ML NEB RESP TX SCH ×2 (00:40→07:23)
[2017-06-28] MEDS ORDERED: diphenhydrAMINE CAP 25 MG CAPSULE PO PRN (03:19)
[2017-06-28 05:55] LABS: Basophils % 0.3 % (0.0-0.8); Hematocrit 39.1 VOL% (42.0-52.0); Immature Granulocytes % 4.9 %; Immature Granulocytes Absolute 0.74 #; Lymphocytes # 0.7 10*3/uL (1.4-4.0); Lymphocytes % 4.6 % (21.2-54.2); Mean Corpuscular HGB Conc 35.8 GM/DL (32-36); Mean Corpuscular Hemoglobin 34 PG (27-34); Mean Corpuscular Volume 95.6 FL (87-102); Mean Platelet Volume 10.4 FL (9.6-12.0); Monocytes # 0.8 10*3/uL (0.11-0.8); Monocytes % 5.6 % (1.7-12.7); Neutrophils # 12.7 10*3/uL (1.4-7.4); Neutrophils % 84.6 % (38.7-73.9); Platelet Count 171 T/CUMM (130-400); Red Blood Count 4.09 MC/CUMM (3.8-5.5); Red Cell Distribution Width 12.5 % (9.3-17.3)
[2017-06-28 06:17] LABS: Lymphocytes 3 % (20-55); Segmented Neutrophils 91 % (50-85); Total Cells Counted 100
[2017-06-28 06:18] LABS: Platelet Estimate Adequate
[2017-06-28 06:21] LABS: Calcium 8.2 MG/DL (8.5-10.1); Magnesium 2.7 MG/DL (1.8-2.4); Osmolality,Calculated 275.2 MOS/KG (273-304); Potassium 3.9 MMOL/L (3.5-5.1)
[2017-06-28] MEDS: BUDESONIDE/FORMOTEROL 160-4.5 INHALER 6 GM INH SCH (09:00)
[2017-06-28] MEDS: THEOPHYLLINE ER 300 MG TABLET PO SCH (09:03)
[2017-06-28] MEDS: NYSTATIN 500,000 UNIT/5 ML UDCUP SWISH/SWAL SCH ×2 (09:03→12:58)
[2017-06-28] MEDS: BENZONATATE 100 MG CAPSULE PO SCH (09:03)
[2017-06-28] MEDS: MONTELUKAST 10 MG TABLET PO SCH (09:03)
[2017-06-28] MEDS: PANTOPRAZOLE 40 MG TABLET PO SCH (09:03)
[2017-06-28] MEDS: CLORAZEPATE 7.5 MG TABLET PO SCH (09:03)
[2017-06-28] MEDS: POLYETHYLENE GLYCOL POWDER 17 GM PACK PO SCH (09:09)
[2017-06-28] MEDS: ALBUTEROL 0.4 MG/ML 30 ML/BOTTLE PO SCH (09:09)
[2017-06-28] MEDS: CLOTRIMAZOLE 1% CREAM 15 GM TUBE TOP SCH (09:10)
[2017-06-28 12:09] VITALS: BP 137/77
[2017-06-28] MEDS ORDERED: PNEUMOCOCCAL VACCINE (23 VALENT) 0.5 ML VIAL IM ONE (12:54)
== END 2017-06-28 14:05 | disposition home or self-care (01) | DRG 192 ==
LOC: N.EDINP 13:48 → N.ED 13:48 → SUATTDRO 15:51 → N.5E 18:59
PROVIDERS: ADMIT Internal Medicine Nephrology; ATTEND Internal Medicine

== ENCOUNTER 2017-08-26 16:04 | Inpatient (IN) ==
[2017-08-26] MEDS ORDERED: ONDANSETRON 4 MG/2 ML VIAL IV STA (16:45)
[2017-08-26] MEDS ORDERED: LEVOFLOXACIN INJ 750 MG in PREMIX 1 EACH IV STA (16:45)
[2017-08-26] MEDS ORDERED: MAGNESIUM SULF RIDER 2 GM in PREMIX 1 EACH IV STA (16:45)
[2017-08-26] MEDS ORDERED: methylPREDNISolone SOD SUC 125 MG/2 ML VIAL IV STA (16:45)
[2017-08-26] MEDS ORDERED: ALBUTEROL 2.5 MG/3 ML NEB RESP TX SCH (17:00)
[2017-08-26] MEDS ORDERED: LEVOFLOXACIN INJ 150 ML IV ONE (17:14)
[2017-08-26] MEDS ORDERED: ONDANSETRON 4 MG/2 ML VIAL ONE (17:14)
[2017-08-26] MEDS ORDERED: methylPREDNISolone SOD SUC 125 MG/2 ML VIAL ONE (17:14)
[2017-08-26] MEDS ORDERED: MAGNESIUM SULF RIDER 50 ML IV ONE (17:15)
[2017-08-26 17:20] LABS: Basophils # 0.1 10*3/uL (0.0-0.2); Eosinophils # 2.5 10*3/uL (0.0-0.87); Eosinophils % 20.7 % (0.00-10.9); Hematocrit 42.3 VOL% (42.0-52.0); Hemoglobin 14.8 GM/DL (14.0-18.0); Immature Granulocytes % 0.3 %; Immature Granulocytes Absolute 0.04 #; Lymphocytes # 1.7 10*3/uL (1.4-4.0); Mean Corpuscular Hemoglobin 34 PG (27-34); Monocytes # 0.9 10*3/uL (0.11-0.8); Monocytes % 7.5 % (1.7-12.7); Neutrophils # 6.9 10*3/uL (1.4-7.4); Neutrophils % 56.5 % (38.7-73.9); Platelet Count 168 T/CUMM (130-400); Red Blood Count 4.36 MC/CUMM (3.8-5.5); White Blood Count 12.2 T/CUMM (4-12)
[2017-08-26 17:31] LABS: INR 1.1; PT Patient Result 11.1 SECS; Partial Thromboplastin Time 25.4 SECS (0-40)
[2017-08-26 17:46] LABS: Apearance,Urine CLEAR (Clear); Bilirubin,Urine Negative (Negative); Blood, Urine Negative (Negative); Glucose,Urine (UA) Negative (Negative); Hyaline Casts,Urine 1 /LPF (0-3); Ketones,Urine Negative (Negative); Mucus,Urine Many /LPF (Occasional); Nitrite,Urine Negative (Negative); Protein,Urine Negative; RBC,Urine 1 /HPF (0-4); Urine Color Amber (Yellow); Urine Specific Gravity 1.024 (1.001-1.035); WBC,Urine 1 /HPF (0-6)
[2017-08-26 18:01] LABS: Alanine Aminotransferase 72 U/L (16-61); Albumin 3.8 G/DL (3.4-5.0); Alkaline Phosphatase 97 U/L (45-117); Aspartate Amino Transferase 48 U/L (0-37); Blood Urea Nitrogen 15 MG/DL (7-18); Calcium 8.7 MG/DL (8.5-10.1); Glucose 76 MG/DL (74-106); Magnesium 2.3 MG/DL (1.8-2.4); Osmolality,Calculated 278.4 MOS/KG (273-304); Potassium 3.6 MMOL/L (3.5-5.1); Sodium 140 MMOL/L (136-145); Total Protein 7.8 G/DL (6.4-8.3); Troponin I Only < 0.015 NG/ML (0.00-0.045)
[2017-08-26 18:06] LABS: Barbiturates Screen,Urine Negative (Negative); Benzodiazepines Screen,Urine Negative (Negative); Cannabinoid Screen,Urine Negative (Negative); Opiate Screen,Urine Negative (Negative); Phencyclidine Screen,Urine Negative (Negative)
[2017-08-26 18:37] LABS: Eosinophils 18 % (0-10); Lymphocytes 19 % (20-55); Platelet Estimate Adequate; Polychromasia Slight; Segmented Neutrophils 58 % (50-85); Total Cells Counted 100
[2017-08-26] MEDS ORDERED: ACETAMINOPHEN 325 MG TABLET PO PRN (19:44)
[2017-08-26] MEDS ORDERED: guaiFENesin/DM ER 600-30 MG TABLET PO PRN (19:44)
[2017-08-26] MEDS ORDERED: AMINOPHYLLINE 500 MG in SODIUM CHLORIDE 0.9% 100 ML IV ONE (19:48)
[2017-08-26] MEDS ORDERED: LEVOFLOXACIN INJ 500 MG in PREMIX 1 EACH IV SCH (20:00)
[2017-08-26] MEDS ORDERED: NICOTINE 21 MG/24 HR PATCH TRANSDERM PRN (20:08)
[2017-08-26] MEDS: BUDESONIDE 0.5 MG/2 ML NEB RESP TX SCH (21:05)
[2017-08-26] MEDS ORDERED: metroNIDAZOLE INJ 500 MG in PREMIX 1 EACH IV SCH (21:30)
[2017-08-26] MEDS: methylPREDNISolone SOD SUC 40 MG/1 ML VIAL IV SCH (21:31)
[2017-08-26] MEDS: guaiFENesin/DM ER 600-30 MG TABLET PO SCH (21:37)
[2017-08-26] MEDS: MONTELUKAST 10 MG TABLET PO SCH (21:37)
[2017-08-26] MEDS: BENZONATATE 100 MG CAPSULE PO SCH (21:37)
[2017-08-26] MEDS: ENOXAPARIN 40 MG/0.4 ML SYRINGE SUBCUT SCH (21:38)
[2017-08-26] MEDS: oxyCODONE/ACETAMINOPHEN 5-325 MG TABLET PO PRN (21:41)
[2017-08-26] MEDS ORDERED: ALUM/MAG/SIMETH/LIDO VISC 1:1 30 ML BOTTLE PO ONE (22:06)
[2017-08-26] MEDS: AMINOPHYLLINE 500 MG in SODIUM CHLORIDE 0.9% 480 ML IV SCH (22:06)
[2017-08-26] MEDS: ALBUTEROL/IPRATROPIUM 3 ML NEB RESP TX SCH (23:42)
[2017-08-26] MEDS: ONDANSETRON 4 MG/2 ML VIAL IV PRN (23:59)
[2017-08-27] MEDS: oxyCODONE/ACETAMINOPHEN 5-325 MG TABLET PO PRN ×4 (02:06→21:05)
[2017-08-27] MEDS: ZALEPLON 5 MG CAPSULE PO PRN ×2 (02:06→21:05)
[2017-08-27] MEDS: ALBUTEROL/IPRATROPIUM 3 ML NEB RESP TX SCH ×5 (02:46→18:47)
[2017-08-27] MEDS: ALUMINUM/MAGNES/SIMETH MAX STR 30 ML UDCUP PO PRN ×3 (03:29→16:41)
[2017-08-27] MEDS: methylPREDNISolone SOD SUC 40 MG/1 ML VIAL IV SCH ×3 (04:53→21:02)
[2017-08-27 06:19] LABS: Basophils % 0.1 % (0.0-0.8); Hematocrit 38.7 VOL% (42.0-52.0); Hemoglobin 13.4 GM/DL (14.0-18.0); Immature Granulocytes Absolute 0.08 #; Lymphocytes # 0.7 10*3/uL (1.4-4.0); Lymphocytes % 9.2 % (21.2-54.2); Mean Corpuscular HGB Conc 34.6 GM/DL (32-36); Mean Corpuscular Hemoglobin 34 PG (27-34); Mean Corpuscular Volume 97.5 FL (87-102); Mean Platelet Volume 10.5 FL (9.6-12.0); Monocytes # 0.1 10*3/uL (0.11-0.8); Monocytes % 0.7 % (1.7-12.7); Neutrophils # 7.1 10*3/uL (1.4-7.4); Platelet Count 163 T/CUMM (130-400); Red Blood Count 3.97 MC/CUMM (3.8-5.5); Red Cell Distribution Width 12.6 % (9.3-17.3)
[2017-08-27 06:47] LABS: Calcium 8.6 MG/DL (8.5-10.1); Osmolality,Calculated 278.8 MOS/KG (273-304); Potassium 3.7 MMOL/L (3.5-5.1)
[2017-08-27] MEDS: BUDESONIDE 0.5 MG/2 ML NEB RESP TX SCH ×2 (07:14→18:47)
[2017-08-27] MEDS: PANTOPRAZOLE 40 MG TABLET PO SCH ×2 (07:53→10:40)
[2017-08-27] MEDS: FLUTICASONE 50 MCG NASAL SPRAY 16 GM BOTTLE BOTH NARES SCH (09:14)
[2017-08-27] MEDS: BENZONATATE 100 MG CAPSULE PO SCH ×3 (09:14→21:05)
[2017-08-27] MEDS: DOCUSATE SODIUM 100 MG CAPSULE PO PRN (09:15)
[2017-08-27] MEDS: guaiFENesin/DM ER 600-30 MG TABLET PO SCH ×2 (11:44→21:05)
[2017-08-27] MEDS: AMINOPHYLLINE 500 MG in SODIUM CHLORIDE 0.9% 480 ML IV SCH (12:30)
[2017-08-27] MEDS: ONDANSETRON 4 MG/2 ML VIAL IV PRN (12:32)
[2017-08-27] MEDS: NYSTATIN 500,000 UNIT/5 ML UDCUP SWISH/SWAL SCH ×3 (17:55→21:06)
[2017-08-27] MEDS: LEVOFLOXACIN INJ 500 MG in PREMIX 1 EACH IV SCH (18:33)
[2017-08-27] MEDS: MONTELUKAST 10 MG TABLET PO SCH (21:05)
[2017-08-27] MEDS: ENOXAPARIN 40 MG/0.4 ML SYRINGE SUBCUT SCH (21:06)
[2017-08-28] MEDS: ALBUTEROL/IPRATROPIUM 3 ML NEB RESP TX SCH ×6 (00:17→18:47)
[2017-08-28] MEDS: ZALEPLON 5 MG CAPSULE PO PRN ×2 (00:48→21:17)
[2017-08-28] MEDS: AMINOPHYLLINE 500 MG in SODIUM CHLORIDE 0.9% 480 ML IV SCH ×2 (02:16→17:03)
[2017-08-28] MEDS: methylPREDNISolone SOD SUC 40 MG/1 ML VIAL IV SCH ×3 (05:03→21:13)
[2017-08-28 06:59] LABS: Basophils % 0.1 % (0.0-0.8); Hematocrit 37.9 VOL% (42.0-52.0); Hemoglobin 13.2 GM/DL (14.0-18.0); Immature Granulocytes % 1.4 %; Immature Granulocytes Absolute 0.25 #; Lymphocytes # 0.8 10*3/uL (1.4-4.0); Lymphocytes % 4.3 % (21.2-54.2); Mean Corpuscular HGB Conc 34.8 GM/DL (32-36); Mean Corpuscular Hemoglobin 34 PG (27-34); Mean Corpuscular Volume 97.7 FL (87-102); Mean Platelet Volume 10.3 FL (9.6-12.0); Monocytes # 0.6 10*3/uL (0.11-0.8); Monocytes % 3.5 % (1.7-12.7); Neutrophils # 16.5 10*3/uL (1.4-7.4); Neutrophils % 90.7 % (38.7-73.9); Platelet Count 166 T/CUMM (130-400); Red Blood Count 3.88 MC/CUMM (3.8-5.5); Red Cell Distribution Width 12.9 % (9.3-17.3); White Blood Count 18.2 T/CUMM (4-12)
[2017-08-28] MEDS: BUDESONIDE 0.5 MG/2 ML NEB RESP TX SCH ×2 (07:09→18:47)
[2017-08-28 07:26] LABS: Band Neutrophils 1 % (0-10); Lymphocytes 7 % (20-55); Segmented Neutrophils 89 % (50-85); Total Cells Counted 100
[2017-08-28 07:27] LABS: Macrocytosis Slight; Platelet Estimate Adequate
[2017-08-28 07:30] LABS: Calcium 8.6 MG/DL (8.5-10.1); Osmolality,Calculated 279.7 MOS/KG (273-304)
[2017-08-28] MEDS: oxyCODONE/ACETAMINOPHEN 5-325 MG TABLET PO PRN ×3 (07:45→21:18)
[2017-08-28] MEDS ORDERED: SODIUM CHLORIDE 0.9% 1,000 ML IV SCH (08:00)
[2017-08-28] MEDS: DOCUSATE SODIUM 100 MG CAPSULE PO PRN ×2 (09:05→21:17)
[2017-08-28] MEDS: guaiFENesin/DM ER 600-30 MG TABLET PO SCH ×2 (09:05→21:18)
[2017-08-28] MEDS: PANTOPRAZOLE 40 MG TABLET PO SCH (09:05)
[2017-08-28] MEDS: BENZONATATE 100 MG CAPSULE PO SCH ×3 (09:05→21:17)
[2017-08-28] MEDS: NYSTATIN 500,000 UNIT/5 ML UDCUP SWISH/SWAL SCH ×4 (09:06→21:20)
[2017-08-28] MEDS: FLUTICASONE 50 MCG NASAL SPRAY 16 GM BOTTLE BOTH NARES SCH (09:06)
[2017-08-28] MEDS ORDERED: CYCLOBENZAPRINE 10 MG TABLET PO PRN (14:01)
[2017-08-28] MEDS: LEVOFLOXACIN INJ 500 MG in PREMIX 1 EACH IV SCH (18:17)
[2017-08-28] MEDS: ENOXAPARIN 40 MG/0.4 ML SYRINGE SUBCUT SCH (21:16)
[2017-08-28] MEDS: MONTELUKAST 10 MG TABLET PO SCH (21:17)
[2017-08-29] MEDS: ALBUTEROL/IPRATROPIUM 3 ML NEB RESP TX SCH ×5 (00:02→19:24)
[2017-08-29] MEDS: ZALEPLON 5 MG CAPSULE PO PRN ×2 (02:07→20:55)
[2017-08-29] MEDS: oxyCODONE/ACETAMINOPHEN 5-325 MG TABLET PO PRN ×3 (05:43→19:43)
[2017-08-29 06:47] LABS: Basophils % 0.1 % (0.0-0.8); Hematocrit 40.5 VOL% (42.0-52.0); Hemoglobin 13.9 GM/DL (14.0-18.0); Immature Granulocytes % 1.4 %; Immature Granulocytes Absolute 0.22 #; Lymphocytes % 6.5 % (21.2-54.2); Mean Corpuscular HGB Conc 34.3 GM/DL (32-36); Mean Corpuscular Hemoglobin 34 PG (27-34); Monocytes # 0.7 10*3/uL (0.11-0.8); Monocytes % 4.2 % (1.7-12.7); Neutrophils # 13.6 10*3/uL (1.4-7.4); Neutrophils % 87.8 % (38.7-73.9); Platelet Count 175 T/CUMM (130-400); Red Blood Count 4.09 MC/CUMM (3.8-5.5); Red Cell Distribution Width 12.9 % (9.3-17.3); White Blood Count 15.5 T/CUMM (4-12)
[2017-08-29] MEDS: BUDESONIDE 0.5 MG/2 ML NEB RESP TX SCH ×2 (07:15→19:24)
[2017-08-29] MEDS: AMINOPHYLLINE 500 MG in SODIUM CHLORIDE 0.9% 480 ML IV SCH ×2 (07:22→20:56)
[2017-08-29 07:25] LABS: Calcium 8.5 MG/DL (8.5-10.1); Osmolality,Calculated 279.7 MOS/KG (273-304); Potassium 3.7 MMOL/L (3.5-5.1)
[2017-08-29] MEDS: FLUTICASONE 50 MCG NASAL SPRAY 16 GM BOTTLE BOTH NARES SCH (09:39)
[2017-08-29] MEDS: BENZONATATE 100 MG CAPSULE PO SCH ×3 (09:39→20:55)
[2017-08-29] MEDS: guaiFENesin/DM ER 600-30 MG TABLET PO SCH ×2 (09:39→20:56)
[2017-08-29] MEDS: NYSTATIN 500,000 UNIT/5 ML UDCUP SWISH/SWAL SCH ×4 (09:40→20:56)
[2017-08-29] MEDS: PANTOPRAZOLE 40 MG TABLET PO SCH (09:40)
[2017-08-29] MEDS: methylPREDNISolone SOD SUC 40 MG/1 ML VIAL IV SCH ×2 (09:40→20:58)
[2017-08-29] MEDS: DOCUSATE SODIUM 100 MG CAPSULE PO PRN (10:11)
[2017-08-29] MEDS: LEVOFLOXACIN INJ 500 MG in PREMIX 1 EACH IV SCH (16:10)
[2017-08-29] MEDS: ENOXAPARIN 40 MG/0.4 ML SYRINGE SUBCUT SCH (20:56)
[2017-08-29] MEDS: MONTELUKAST 10 MG TABLET PO SCH (20:56)
[2017-08-30] MEDS: ALBUTEROL/IPRATROPIUM 3 ML NEB RESP TX SCH ×4 (00:07→11:50)
[2017-08-30] MEDS: oxyCODONE/ACETAMINOPHEN 5-325 MG TABLET PO PRN ×2 (03:23→09:50)
[2017-08-30] MEDS: BUDESONIDE 0.5 MG/2 ML NEB RESP TX SCH (07:48)
[2017-08-30] MEDS: BENZONATATE 100 MG CAPSULE PO SCH (08:25)
[2017-08-30] MEDS: DOCUSATE SODIUM 100 MG CAPSULE PO PRN (08:25)
[2017-08-30] MEDS: PANTOPRAZOLE 40 MG TABLET PO SCH (08:25)
[2017-08-30] MEDS: NYSTATIN 500,000 UNIT/5 ML UDCUP SWISH/SWAL SCH ×2 (08:25→13:04)
[2017-08-30] MEDS: methylPREDNISolone SOD SUC 40 MG/1 ML VIAL IV SCH (08:26)
[2017-08-30] MEDS: guaiFENesin/DM ER 600-30 MG TABLET PO SCH (08:26)
[2017-08-30] MEDS: FLUTICASONE 50 MCG NASAL SPRAY 16 GM BOTTLE BOTH NARES SCH (08:27)
[2017-08-30] MEDS ORDERED: THEOPHYLLINE ER (24 HR) 400 MG CAPSULE PO SCH (11:00)
[2017-08-30 11:37] VITALS: BP 151/90
[2017-08-30] MEDS ORDERED: BUDESONIDE/FORMOTEROL 160-4.5 INHALER 6 GM INH SCH (14:30)
== END 2017-08-30 15:20 | disposition home or self-care (01) | DRG 191 ==
LOC: N.ED 16:04 → SUATTDRO 18:26 → N.EDINP 18:26 → N.5E 19:32
PROVIDERS: ADMIT Family Medicine; ATTEND Internal Medicine